=== PATIENT | male | born 1950 | race American Indian/Alaskan Native ===

== ENCOUNTER 2018-07-24 15:31 | Inpatient (IN) | payer MEDICARE, MEDICAID ==
[2018-07-24 15:32] VITALS: BMI 23.1
--- NOTE | 2018-07-24 17:32 | C.PDOC ---
History Of Present Illness 68 year old male, with history of homelessness, is brought to the ED by EMS for evaluation after he was found publicly intoxicated prior to arrival. Patient is complaining of right-sided hip pain, which he states is chronic. Patient presents to the ED covered in feces and denies suicidal/homicidal ideation or recent trauma/injuries at this time. <Shania Pinto - Last Filed: 07/24/18 19:10> History Per: Patient, EMS History/Exam Limitations: intoxication Onset/Duration Of Symptoms: Hrs Current Symptoms Are (Timing): Still Present Additional History Per: Patient <Shania Pitno - Last Filed: 07/24/18 19:10> <Hadley Denney - Last Filed: 07/25/18 06:17> Time Seen by Provider: 07/24/18 15:45 Chief Complaint (Nursing): Hip Pain Past Medical History Reviewed: Historical Data, Nursing Documentation, Vital Signs Vital Signs: Last Vital Signs Temp 98.4 F 07/24/18 15:44 Pulse 95 H 07/24/18 15:44 Resp 20 07/24/18 15:44 BP 121/77 07/24/18 15:44 Pulse Ox 96 07/24/18 15:44 - Medical History PMH: Schizophrenia Denies: Diabetes, Hepatitis, HIV, HTN, Chronic Kidney Disease, Seizures, Sexually Transmitted Disease Surgical History: No Surg Hx - [facility] Procedures (05/14/18) EXCISION OF RIGHT LOWER LEG SKIN, EXTERNAL APPROACH (05/14/18) EXERCISE TREATMENT OF MUSCULOSK WHOLE USING ASSIST EQUIPMENT (05/17/18) HOME MANAGEMENT TREATMENT USING ASSIST EQUIPMENT (05/17/18) INTRODUCE OF OTH ANTI-INFECT INTO PERIPH VEIN, PERC APPROACH (05/17/18) INTRODUCTION OF SERUM/TOX/VACCINE INTO MUSCLE, PERC APPROACH (05/14/18) Family History: States: Unknown Family Hx - Social History Hx Alcohol Use: No Hx Substance Use: No - Immunization History Hx Tetanus Toxoid Vaccination: Yes Hx Influenza Vaccination: Yes Hx Pneumococcal Vaccination: Yes <Shania Pinto - Last Filed: 07/24/18 19:10> Vital Signs: Last Vital Signs Temp 99.5 F 07/25/18 04:30 Pulse 87 07/25/18 04:30 Resp 16 07/25/18 04:30 BP 110/70 07/25/18 04:30 Pulse Ox 97 07/25/18 04:30 - [facility] Procedures (05/14/18) EXCISION OF RIGHT LOWER LEG SKIN, EXTERNAL APPROACH (05/14/18) EXERCISE TREATMENT OF MUSCULOSK WHOLE USING ASSIST EQUIPMENT (05/17/18) HOME MANAGEMENT TREATMENT USING ASSIST EQUIPMENT (05/17/18) INTRODUCE OF OTH ANTI-INFECT INTO PERIPH VEIN, PERC APPROACH (05/17/18) INTRODUCTION OF SERUM/TOX/VACCINE INTO MUSCLE, PERC APPROACH (05/14/18) <Hadley Denney - Last Filed: 07/25/18 06:17> Review Of Systems Musculoskeletal: Positive for: Other (right hip pain (chronic)) Psych: Positive for: Other (EtOH intoxication ). Negative for: Suicidal ideation <Shania Pinto - Last Filed: 07/24/18 19:10> Physical Exam - Physical Exam Appears: Non-toxic, No Acute Distress, Unkempt, Other (covered in feces ) Skin: Normal Color, Warm, Dry Head: Atraumatic, Normacephalic Eye(s): bilateral: Normal Inspection Oral Mucosa: Moist, Other (alcohol on breath ) Neck: Supple Chest: Symmetrical, No Deformity Respiratory: No Accessory Muscle Use Neurological/Psych: Normal Speech, Other (speaking in full sentences ) <Shania Pinto - Last Filed: 07/24/18 19:10> ED Course And Treatment O2 Sat by Pulse Oximetry: 96 (on RA ) Pulse Ox Interpretation: Normal <Shania Pinto Last Filed: 07/24/18 19:10> - Laboratory Results Result Diagrams: 07/25/18 05:38 07/25/18 00:13 Lab Results: Total Bilirubin 1.2 mg/dL (0.2-1.3) 07/25/18 00:13 AST 32 U/L (17-59) 07/25/18 00:13 ALT 28 U/L (21-72) 07/25/18 00:13 Alkaline Phosphatase 78 U/L (38-126) 07/25/18 00:13 Total Protein 6.4 g/dL (6.3-8.3) 07/25/18 00:13 Albumin 3.3 g/dL (3.5-5.0) L 07/25/18 00:13 Globulin 3.1 gm/dL (2.2-3.9) 07/25/18 00:13 Albumin/Globulin Ratio 1.1 (1.0-2.1) 07/25/18 00:13 Urine Color Yellow (YELLOW) 07/24/18 02:46 Urine Clarity Clear (Clear) 07/24/18 02:46 Urine pH 6.0 (5.0-8.0) 07/24/18 02:46 Ur Specific [place] 1.010 (1.003-1.030) 07/24/18 02:46 Urine Protein Negative mg/dL (NEGATIVE) 07/24/18 02:46 Urine Glucose (UA) Normal mg/dL (Normal) 07/24/18 02:46 Urine Ketones Negative mg/dL (NEGATIVE) 07/24/18 02:46 Urine Blood Trace (NEGATIVE) H 07/24/18 02:46 Urine Nitrate Negative (NEGATIVE) 07/24/18 02:46 Urine Bilirubin Negative (NEGATIVE) 07/24/18 02:46 Urine Urobilinogen 4.0 mg/dL (0.2-1.0) 07/24/18 02:46 Ur Leukocyte Esterase Neg Bailey/uL (Negative) 07/24/18 02:46 Urine WBC (Auto) 1 /hpf (0-5) 07/24/18 02:46 Ur Squamous Epith Cells < 1 /hpf (0-5) 07/24/18 02:46 Urine Bacteria Rare (<OCC) 07/24/18 02:46 Pulse Ox Interpretation: Normal - Radiology CXR: Interpreted by Me, Viewed By Me CXR Interpretation: Yes: Infiltrates (? rll ). No: Fracture, Pnemothorax Progress Note: Pt is clinically sober. Denies any cough, shortness of breath. Speaking in complete sentences. Wants to go. Instructed to return if he does not feel well Reevaluation Time: 06:12 Reassessment Condition: Improved <Hadley Denney - Last Filed: 07/25/18 06:17> Medical Decision Making Medical Decision Making: Progress: Patient is being cleaned by staff and will be fed a meal. Hip XR ordered and reviewed. Motrin PO given. <Shania Pinto - Last Filed: 07/24/18 19:10> Disposition - Disposition Disposition Time: 19:09 <Shania Pinto - Last Filed: 07/24/18 19:10> Counseled Patient/Family Regarding: Studies Performed, Diagnosis, Need For Followup, Rx Given <Hadley Denney - Last Filed: 07/25/18 06:17> - Disposition Referrals: [facility] [Outside] [facility] [Outside] Disposition: HOME/ ROUTINE Condition: FAIR Additional Instructions: Please return if you have fever, chill cough, shortness of breath or not feeling well. 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 - Scribe Statement The provider has reviewed the documentation as recorded by the Scribe (Elizabeth Willard) All medical record entries made by the Scribe were at my direction and personally dictated by me. I have reviewed the chart and agree that the record accurately reflects my personal performance of the history, physical exam, medical decision making, and the department course for this patient. I have also personally directed, reviewed, and agree with the discharge instructions and disposition. <Shania Pinto - Last Filed: 07/24/18 19:10> Physician Patient Turnover Patient Signed Over To: Hadley Denney Handoff Comments: Pending sobriety <Shania Pinto - Last Filed: 07/24/18 19:10>
[2018-07-25 00:20] LABS: BASO % 0.1 % (0.0-2.0); EOS % 0.1 % (0.0-4.0); HEMOGLOBIN 10.9 g/dL (12.0-18.0); LYMPH # 0.8 K/uL (1.0-4.3); LYMPH % 3.9 % (20.0-40.0); MEAN CELL VOLUME 83.9 fL (80.0-94.0); MEAN CORPUSCULAR HEMOGLOBIN 27.1 pg (27.0-31.0); MEAN CORPUSCULAR HGB CONC 32.3 g/dL (33.0-37.0); MEAN PLATELET VOLUME 6.9 fL (7.2-11.7); MONO # 1.6 K/uL (0.0-0.8); MONO % 7.7 % (0.0-10.0); NEUT # 18.7 K/uL (1.8-7.0); NEUT % 88.2 % (50.0-75.0); PLATELET COUNT 345 K/uL (130-400); RBC 4.01 Mil/uL (4.40-5.90); RED CELL DISTRIBUTION WIDTH 14.4 % (11.5-14.5); WHITE BLOOD COUNT 21.2 K/uL (4.8-10.8)
[2018-07-25 00:34] LABS: ALB/GLOB RATIO 1.1 (1.0-2.1); ALBUMIN 3.3 g/dL (3.5-5.0); ALT/SGPT 28 U/L (21-72); AST/SGOT 32 U/L (17-59); BLOOD UREA NITROGEN 16 mg/dL (9-20); CALCIUM 8.3 mg/dl (8.6-10.4); GFR NON-AFRICAN AMERICAN > 60
[2018-07-25 01:23] LABS: BANDS 2 % (0-2); LYMPHOCYTE 4 % (20-40); MONOCYTE 8 % (0-10); NEUTROPHIL 86 % (50-75); PLATELET ESTIMATE NORMAL (NORMAL); TOTAL CELLS COUNTED 100
[2018-07-25 02:50] LABS: SQUAMOUS EPITHIAL < 1 /hpf (0-5); URINE BACTERIA RARE (<OCC); URINE BILIRUBIN NEGATIVE (NEGATIVE); URINE BLOOD TRACE (NEGATIVE); URINE CLARITY Clear (Clear); URINE COLOR Yellow (YELLOW); URINE GLUCOSE (UA) NORMAL (Normal); URINE LEUKOCYTE ESTERASE NEG Leu/uL (Negative); URINE PROTEIN NEGATIVE (NEGATIVE)
[2018-07-25] MEDS ORDERED: Sodium Chloride 0.9% 1,000 ML IV ONE ×2 (03:00→04:05)
[2018-07-25 03:05] LABS: BARBITURATES, UR NEGATIVE (NEGATIVE); BENZODIAZEPINES, UR NEGATIVE (NEGATIVE); OPIATES, UR NEGATIVE (NEGATIVE); PHENCYCLIDINE, UR NEGATIVE (NEGATIVE)
[2018-07-25 05:43] LABS: BASO % 0.1 % (0.0-2.0); EOS % 0.1 % (0.0-4.0); HEMOGLOBIN 11.2 g/dL (12.0-18.0); LYMPH # 0.9 K/uL (1.0-4.3); LYMPH % 4.3 % (20.0-40.0); MEAN CELL VOLUME 84.2 fL (80.0-94.0); MEAN CORPUSCULAR HEMOGLOBIN 27.7 pg (27.0-31.0); MEAN CORPUSCULAR HGB CONC 32.9 g/dL (33.0-37.0); MEAN PLATELET VOLUME 6.7 fL (7.2-11.7); MONO # 1.5 K/uL (0.0-0.8); MONO % 7.4 % (0.0-10.0); NEUT % 88.1 % (50.0-75.0); PLATELET COUNT 341 K/uL (130-400); RBC 4.05 Mil/uL (4.40-5.90); RED CELL DISTRIBUTION WIDTH 14.3 % (11.5-14.5); WHITE BLOOD COUNT 20.5 K/uL (4.8-10.8)
[2018-07-25 08:02] LABS: BANDS 10 % (0-2); LYMPHOCYTE 9 % (20-40); MONOCYTE 3 % (0-10); NEUTROPHIL 78 % (50-75); TOTAL CELLS COUNTED 100
[2018-07-25 08:03] LABS: PLATELET ESTIMATE NORMAL (NORMAL)
[2018-07-25 08:04] LABS: HYPOCHROMIC SLIGHT; POLYCHROMIC SLIGHT; TARGET CELLS SLIGHT
[2018-07-25 09:10] LABS: VENOUS BLOOD GAS BASE EXCESS 2.6 mmol/L (0.0-2.0); VENOUS BLOOD GAS PCO2 41 mmHg (40-60); VENOUS BLOOD GAS PO2 41 mm/Hg (30-55); VENOUS BLOOD PH 7.43 (7.32-7.43)
--- NOTE | 2018-07-25 10:58 | RAD ---
Chest x-ray single frontal view HISTORY: Elevated white blood cell count. Comparison: None available. Findings: Small left pleural effusion with adjacent left basilar consolidation. Mild venous congestion. Right infrahilar prominence. Cardiomegaly. Biapical pleural thickening with upper lobe granulomatous changes. Degenerative changes in the spine and shoulders. Impression: Small left pleural effusion with adjacent left basilar consolidation. Mild venous congestion. Right infrahilar prominence. Cardiomegaly. Biapical pleural thickening with upper lobe granulomatous changes.
--- NOTE | 2018-07-25 12:19 | RAD ---
Indication: hip pain Right hip with pelvis Comparison: None available Findings: Mild bilateral glenohumeral joint space narrowing. 12 mm sclerotic focus, right intratrochanteric region. No acute displaced fracture or dislocation identified. Sacroiliac joints appear intact. Moderate constipation. Soft tissues appear unremarkable. No evidence of radiopaque foreign body. Impression: No acute displaced fracture or dislocation evident. If high clinical index of suspicion, suggest cross-sectional imaging for further evaluation. Otherwise, if symptoms persist or if there is continued clinical concern, x-ray follow-up in 7-10 days should be considered. 12 mm sclerotic focus, right intratrochanteric region. Moderate constipation.
[2018-07-25] MEDS: Folic Acid 1 MG, Thiamine 100 MG, Multivitamin (MVI) 10 ML in Dextrose 5% In Water 1,00... IV SCH (14:00)
[2018-07-25] MEDS: guaiFENesin 600 mg ER Tab PO SCH ×2 (14:01→17:48)
--- NOTE | 2018-07-25 21:45 | CP.PCM.HP ---
Present on Admission - Present on Admission Any Indicators Present on Admission: No Past Patient History - Infectious Disease Hx of Infectious Diseases: None - Past Medical History & Family History Past Medical History?: No - Past Social History Smoking Status: Current Some Days Smoker - CARDIAC Hx Cardiac Disorders: No Hx Hypertension: No - PULMONARY Hx Bronchitis: Yes Hx Tuberculosis: No - NEUROLOGICAL HX Cerebrovascular Accident: No Hx Seizures: No - HEENT Hx HEENT Problems: No - RENAL Hx Chronic Kidney Disease: No Hx Dialysis: No - ENDOCRINE/METABOLIC Hx Endocrine Disorders: No - HEMATOLOGICAL/ONCOLOGICAL Hx Cancer: No Hx Human Immunodeficiency Virus (HIV): No - INTEGUMENTARY Hx Dermatological Problems: Yes Other/Comment: right thigh skin ulcer - MUSCULOSKELETAL/RHEUMATOLOGICAL Hx Falls: Yes - GASTROINTESTINAL Hx Gastrointestinal Disorders: No - GENITOURINARY/GYNECOLOGICAL Hx Genitourinary Disorders: No Hx Sexually Transmitted Disorders: No - PSYCHIATRIC Hx Psychophysiologic Disorder: Yes Hx Depression: Yes Hx Schizophrenia: Yes Hx Substance Use: No - SURGICAL HISTORY Hx Surgeries: No - ANESTHESIA Hx Anesthesia: Yes Hx Anesthesia Reactions: No Hx Malignant Hyperthermia: No Has any member of the family had a problem w/ anesthesia?: No Meds Allergies/Adverse Reactions: Allergies Allergy/AdvReac Type Severity Reaction Status Date / Time No Known Allergies Allergy Verified 05/23/18 01:01 Results - Vital Signs Recent Vital Signs: Last Vital Signs Temp 99.3 F 07/25/18 11:20 Pulse 79 07/25/18 14:05 Resp 16 07/25/18 14:05 BP 117/68 07/25/18 14:05 Pulse Ox 98 07/25/18 19:00 - Labs Result Diagrams: 07/25/18 05:38 07/25/18 00:13 Labs: Laboratory Results - last 24 hr 07/24/18 07/24/18 07/25/18 02:46 02:46 00:13 WBC 21.2 H RBC 4.01 L Hgb 10.9 L Hct 33.6 L MCV 83.9 MCH 27.1 MCHC 32.3 L RDW 14.4 Plt Count 345 MPV 6.9 L Neut % (Auto) 88.2 H Lymph % (Auto) 3.9 L [place] % (Auto) 7.7 Eos % (Auto) 0.1 Baso % (Auto) 0.1 Neut # (Auto) 18.7 H Lymph # (Auto) 0.8 L [place] # (Auto) 1.6 H Eos # (Auto) 0.0 Baso # (Auto) 0.0 Neutrophils % (Manual) 86 H Band Neutrophils % 2 Lymphocytes % (Manual) 4 L Monocytes % (Manual) 8 Platelet Estimate Normal Polychromasia Hypochromasia (manual) Target Cells pO2 VBG pH VBG pCO2 VBG HCO3 VBG Total CO2 VBG O2 Sat (Calc) VBG Base Excess VBG Potassium Glucose Lactate Sodium Potassium Chloride Carbon Dioxide Anion Gap BUN Creatinine Est GFR ( Amer) Est GFR (Non-Af Amer) Random Glucose Calcium Phosphorus Magnesium Total Bilirubin AST ALT Alkaline Phosphatase Total Protein Albumin Globulin Albumin/Globulin Ratio Venous Blood Potassium Urine Color Yellow Urine Clarity Clear Urine pH 6.0 Ur Specific [place] 1.010 Urine Protein Negative Urine Glucose (UA) Normal Urine Ketones Negative Urine Blood Trace H Urine Nitrate Negative Urine Bilirubin Negative Urine Urobilinogen 4.0 Ur Leukocyte Esterase Neg Urine WBC (Auto) 1 Ur Squamous Epith Cells < 1 Urine Bacteria Rare Urine Opiates Screen Negative Urine Methadone Screen Negative Ur Barbiturates Screen Negative Ur Phencyclidine Scrn Negative Ur Amphetamines Screen Negative U Benzodiazepines Scrn Negative U Oth Cocaine Metabols Negative U Cannabinoids Screen Negative Alcohol, Quantitative Influenza Typ A,B (EIA) 07/25/18 07/25/18 07/25/18 00:13 05:38 09:05 WBC 20.5 H RBC 4.05 L Hgb 11.2 L Hct 34.1 L MCV 84.2 MCH 27.7 MCHC 32.9 L RDW 14.3 Plt Count 341 MPV 6.7 L Neut % (Auto) 88.1 H Lymph % (Auto) 4.3 L [place] % (Auto) 7.4 Eos % (Auto) 0.1 Baso % (Auto) 0.1 Neut # (Auto) 18.0 H Lymph # (Auto) 0.9 L [place] # (Auto) 1.5 H Eos # (Auto) 0.0 Baso # (Auto) 0.0 Neutrophils % (Manual) 78 H Band Neutrophils % 10 H Lymphocytes % (Manual) 9 L Monocytes % (Manual) 3 Platelet Estimate Normal Polychromasia Slight Hypochromasia (manual) Slight Target Cells Slight pO2 41 VBG pH 7.43 VBG pCO2 41 VBG HCO3 26.4 VBG Total CO2 28.5 H VBG O2 Sat (Calc) 78.7 H VBG Base Excess 2.6 H VBG Potassium 3.0 L Glucose 95 Lactate 1.0 Sodium 130 L 137.0 Potassium 3.3 L Chloride 96 L 105.0 Carbon Dioxide 28 Anion Gap 10 BUN 16 Creatinine 0.9 Est GFR ( Amer) > 60 Est GFR (Non-Af Amer) > 60 Random Glucose 93 Calcium 8.3 L Phosphorus 2.1 L Magnesium 1.8 Total Bilirubin 1.2 AST 32 ALT 28 Alkaline Phosphatase 78 Total Protein 6.4 Albumin 3.3 L Globulin 3.1 Albumin/Globulin Ratio 1.1 Venous Blood Potassium 3.0 L Urine Color Urine Clarity Urine pH Ur Specific [place] Urine Protein Urine Glucose (UA) Urine Ketones Urine Blood Urine Nitrate Urine Bilirubin Urine Urobilinogen Ur Leukocyte Esterase Urine WBC (Auto) Ur Squamous Epith Cells Urine Bacteria Urine Opiates Screen Urine Methadone Screen Ur Barbiturates Screen Ur Phencyclidine Scrn Ur Amphetamines Screen U Benzodiazepines Scrn U Oth Cocaine Metabols U Cannabinoids Screen Alcohol, Quantitative < 10 Influenza Typ A,B (EIA) 07/25/18 09:36 WBC RBC Hgb Hct MCV MCH MCHC RDW Plt Count MPV Neut % (Auto) Lymph % (Auto) [place] % (Auto) Eos % (Auto) Baso % (Auto) Neut # (Auto) Lymph # (Auto) [place] # (Auto) Eos # (Auto) Baso # (Auto) Neutrophils % (Manual) Band Neutrophils % Lymphocytes % (Manual) Monocytes % (Manual) Platelet Estimate Polychromasia Hypochromasia (manual) Target Cells pO2 VBG pH VBG pCO2 VBG HCO3 VBG Total CO2 VBG O2 Sat (Calc) VBG Base Excess VBG Potassium Glucose Lactate Sodium Potassium Chloride Carbon Dioxide Anion Gap BUN Creatinine Est GFR ( Amer) Est GFR (Non-Af Amer) Random Glucose Calcium Phosphorus Magnesium Total Bilirubin AST ALT Alkaline Phosphatase Total Protein Albumin Globulin Albumin/Globulin Ratio Venous Blood Potassium Urine Color Urine Clarity Urine pH Ur Specific [place] Urine Protein Urine Glucose (UA) Urine Ketones Urine Blood Urine Nitrate Urine Bilirubin Urine Urobilinogen Ur Leukocyte Esterase Urine WBC (Auto) Ur Squamous Epith Cells Urine Bacteria Urine Opiates Screen Urine Methadone Screen Ur Barbiturates Screen Ur Phencyclidine Scrn Ur Amphetamines Screen U Benzodiazepines Scrn U Oth Cocaine Metabols U Cannabinoids Screen Alcohol, Quantitative Influenza Typ A,B (EIA) Negative for flu a/b
[2018-07-25] MEDS: Albuterol-Ipratrop 3 mg / 0.5 (3 ml) UD INH SCH (22:38)
[2018-07-26] MEDS: Albuterol-Ipratrop 3 mg / 0.5 (3 ml) UD INH SCH ×3 (01:40→20:04)
--- NOTE | 2018-07-26 06:55 | HP ---
CHIEF COMPLAINT: Weakness and cough x1 week. HISTORY OF PRESENT ILLNESS: This is a 68-year-old male who is alcoholic, he drinks daily in large quantity and has had multiple hospitalizations due to alcohol who is not on any medication, not being followed up by any physician, who is an alcoholic. He drinks large quantity and different kind of alcohol on a daily basis. The patient has been feeling weak, dizzy. He has cough, congestion, sputum production, chills, rigors, body aches, tiredness, anorexia, malaise, and fatigue. The patient denies any polyuria, polydipsia, or polyphagia. He has shaking. He has tremor. He denies any fever. However, he has weakness, difficulty walking. He denies any abdominal pain or diarrhea. He denies any history of joint pain, hip pain. He has tingling in the feet. There is no history of trauma, head injury, fall or loss of consciousness. No seizure-like activity. ALLERGIES: UNKNOWN. CURRENT MEDICATIONS: None. PAST MEDICAL HISTORY: Nothing significant. SOCIAL HISTORY: He smokes. He drinks. He denies any street drugs. FAMILY HISTORY: Noncontributory. PHYSICAL EXAMINATION: GENERAL: An elderly male in no acute distress. He looks weak, disheveled with smell of alcohol. VITAL SIGNS: Blood pressure 116/74, pulse 85, respiratory rate 20, temperature 98.6. SKIN: Dry, poor turgor. No bruises. No purpura. No petechiae. HEENT: Atraumatic and normocephalic. Negative pallor. Negative jaundice. Extraocular movements are intact. NECK: Supple. No JVD. No lymph nodes. No thyromegaly. CHEST WALL: Bilateral symmetrical expansion. No deformity. No masses. LUNGS: Bilateral inspiratory and expiratory rhonchi. Decreased air entry. CVS: PMI in fifth intercostal space. S1, S2 plus S3 positive. ABDOMEN: Soft and nontender. Bowel sounds are positive. RECTAL: No masses. No bleed. EXTREMITIES: No clubbing, cyanosis, or edema. HOSE CEMENTER: Awake, alert, and oriented x3. Cranial nerves II through XII are normal. He is now walking unsteady, but he is able to walk. ASSESSMENT: 1. Tracheobronchitis, rule out pneumonia. 2. Alcoholism with alcohol intoxication. 3. Anemia, could be due to alcohol, could be gastrointestinal nauseous. PLAN: Admit. Detailed orders are written. The patient is seen and examined in detail. Zaheer Raza MD
[2018-07-26 07:22] LABS: TOTAL IRON BINDING CAPACITY 279 ug/dL (250-450)
[2018-07-26 07:31] LABS: IRON 14 ug/dL (49-181)
[2018-07-26 07:41] LABS: % IRON SATURATION 5 (20-55)
[2018-07-26] MEDS: guaiFENesin 600 mg ER Tab PO SCH ×2 (09:45→18:14)
[2018-07-26] MEDS: Azithromycin 500 MG in Sodium Chloride 0.9% 250 ML IVPB SCH (10:29)
[2018-07-26] MEDS: Folic Acid 1 MG, Thiamine 100 MG, Multivitamin (MVI) 10 ML in Dextrose 5% In Water 1,00... IV SCH (11:00)
[2018-07-26] MEDS: Enoxaparin 40 mg Syringe SC SCH (11:00)
[2018-07-26] MEDS ORDERED: Potassium Chloride 20 mEq ER Tab PO ONE (16:00)
--- NOTE | 2018-07-26 21:13 | CP.PCM.PN ---
Subjective - Date & Time of Evaluation Date of Evaluation: 07/26/18 Time of Evaluation: 09:40 - Subjective Subjective: dictated Objective - Vital Signs/Intake and Output Vital Signs (last 24 hours): Temp Pulse Resp BP Pulse Ox 98.2 F 99 H 20 127/83 97 07/26/18 16:00 07/26/18 16:00 07/26/18 16:00 07/26/18 16:00 07/26/18 16:00 Intake and Output: 07/26/18 07/27/18 18:59 06:59 Intake Total 1450 Output Total 300 Balance 1150 - Medications Medications: Current Medications Acetaminophen (Tylenol 325mg Tab) 650 mg PO Q6 PRN PRN Reason: Pain, moderate (4-7) Last Admin: 07/26/18 20:44 Dose: 650 mg Albuterol/Ipratropium (Duoneb 3 Mg/0.5 Mg (3 Ml) Ud) 3 ml INH RQ6 ANNAMARIE Last Admin: 07/26/18 20:04 Dose: Not Given Enoxaparin Sodium (Lovenox) 40 mg SC DAILY ANNAMARIE Last Admin: 07/26/18 11:00 Dose: 40 mg Ferrous Sulfate (Feosol Liq) 300 mg PO DAILY ANNAMARIE Guaifenesin (Mucinex La) 600 mg PO BID ANNAMARIE Last Admin: 07/26/18 18:14 Dose: 600 mg Folic Acid 1 mg/ Thiamine HCl 100 mg/ Multivitamins/Vitamin C 10 ml/ Dextrose 1,011.2 mls @ 100 mls/hr IV DAILY ANNAMARIE Last Admin: 07/26/18 11:00 Dose: 100 mls/hr Ceftriaxone Sodium 1 gm/ (Sodium Chloride) 100 mls @ 100 mls/hr IVPB DAILY ANNAMARIE; Protocol Last Admin: 07/26/18 09:44 Dose: 100 mls/hr Azithromycin 500 mg/ Sodium (Chloride) 250 mls @ 250 mls/hr IVPB DAILY ANNAMARIE; Protocol Last Admin: 07/26/18 10:29 Dose: 250 mls/hr - Labs Labs: 07/25/18 05:38 07/25/18 00:13
--- NOTE | 2018-07-27 00:46 | PN ---
DATE: 07/26/2018 SUBJECTIVE: The patient is confused, and he is forgetful. He is coughing. He is wheezing. He is afebrile. WBC is still elevated to 12.5, the patient has bands 10%. PHYSICAL EXAMINATION: VITAL SIGNS: Blood pressure 127/83, pulse 99, respiratory rate 20, and temperature 98.2. LUNGS: Bilateral scattered rales and rhonchi. Decreased air entry. CARDIOVASCULAR SYSTEM: S1 and S2, regular. ABDOMEN: Soft. ASSESSMENT: 1. Clinically, there is pneumonia. 2. Alcoholism. 3. Right arm injury. PLAN: Continue antibiotics and monitor WBC count and Pulmonary consult. Zaheer Raza MD
[2018-07-27] MEDS: Albuterol-Ipratrop 3 mg / 0.5 (3 ml) UD INH SCH ×3 (01:22→20:40)
[2018-07-27 07:29] LABS: BASO % 0.3 % (0.0-2.0); EOS # 0.1 K/uL (0.0-0.7); EOS % 0.6 % (0.0-4.0); HEMOGLOBIN 12.3 g/dL (12.0-18.0); LYMPH % 5.7 % (20.0-40.0); MEAN CELL VOLUME 83.2 fL (80.0-94.0); MEAN CORPUSCULAR HEMOGLOBIN 28.4 pg (27.0-31.0); MEAN CORPUSCULAR HGB CONC 34.2 g/dL (33.0-37.0); MEAN PLATELET VOLUME 6.7 fL (7.2-11.7); MONO # 1.3 K/uL (0.0-0.8); MONO % 7.6 % (0.0-10.0); NEUT # 15.2 K/uL (1.8-7.0); NEUT % 85.8 % (50.0-75.0); PLATELET COUNT 440 K/uL (130-400); RBC 4.34 Mil/uL (4.40-5.90); RED CELL DISTRIBUTION WIDTH 14.9 % (11.5-14.5); WHITE BLOOD COUNT 17.6 K/uL (4.8-10.8)
[2018-07-27 08:00] LABS: BLOOD UREA NITROGEN 12 mg/dL (9-20); CALCIUM 8.5 mg/dl (8.6-10.4); GFR NON-AFRICAN AMERICAN > 60
[2018-07-27 08:56] LABS: BANDS 7 % (0-2); EOSINOPHIL 3 % (0-4); LYMPHOCYTE 2 % (20-40); MONOCYTE 6 % (0-10); MYELOCYTE 1 % (0-0); NEUTROPHIL 79 % (50-75); PLATELET ESTIMATE NORMAL (NORMAL); REACTIVE LYMPHOCYTES 2 % (0-0); TOTAL CELLS COUNTED 100
[2018-07-27] MEDS: guaiFENesin 600 mg ER Tab PO SCH ×2 (10:35→17:06)
[2018-07-27] MEDS: Ferrous Sulfate 300 mg/5 mL Liq UD PO SCH (10:35)
[2018-07-27] MEDS: Enoxaparin 40 mg Syringe SC SCH (10:35)
[2018-07-27] MEDS: Azithromycin 500 MG in Sodium Chloride 0.9% 250 ML IVPB SCH (10:35)
[2018-07-27] MEDS: Folic Acid 1 MG, Thiamine 100 MG, Multivitamin (MVI) 10 ML in Dextrose 5% In Water 1,00... IV SCH (10:36)
--- NOTE | 2018-07-27 12:27 | CP.PCM.PN ---
Subjective - Date & Time of Evaluation Date of Evaluation: 07/27/18 Time of Evaluation: 07:40 - Subjective Subjective: dictated Objective - Vital Signs/Intake and Output Vital Signs (last 24 hours): Temp Pulse Resp BP Pulse Ox 98 F 82 20 136/77 96 07/27/18 08:44 07/27/18 08:44 07/27/18 08:44 07/27/18 08:44 07/27/18 08:44 Intake and Output: 07/27/18 07/27/18 06:59 18:59 Intake Total 1480 Output Total 2750 Balance -1270 - Medications Medications: Current Medications Acetaminophen (Tylenol 325mg Tab) 650 mg PO Q6 PRN PRN Reason: Pain, moderate (4-7) Last Admin: 07/26/18 20:44 Dose: 650 mg Albuterol/Ipratropium (Duoneb 3 Mg/0.5 Mg (3 Ml) Ud) 3 ml INH RQ6 ANNAMARIE Last Admin: 07/27/18 08:39 Dose: Not Given Enoxaparin Sodium (Lovenox) 40 mg SC DAILY [facility] Last Admin: 07/27/18 10:35 Dose: 40 mg Ferrous Sulfate (Feosol Liq) 300 mg PO DAILY ANNAMARIE Last Admin: 07/27/18 10:35 Dose: 300 mg Guaifenesin (Mucinex La) 600 mg PO BID ANNAMARIE Last Admin: 07/27/18 10:35 Dose: 600 mg Folic Acid 1 mg/ Thiamine HCl 100 mg/ Multivitamins/Vitamin C 10 ml/ Dextrose 1,011.2 mls @ 100 mls/hr IV DAILY ANNAMARIE Last Admin: 07/27/18 10:36 Dose: 100 mls/hr Ceftriaxone Sodium 1 gm/ (Sodium Chloride) 100 mls @ 100 mls/hr IVPB DAILY ANNAMARIE; Protocol Last Admin: 07/27/18 10:34 Dose: 100 mls/hr Azithromycin 500 mg/ Sodium (Chloride) 250 mls @ 250 mls/hr IVPB DAILY ANNAMARIE; Protocol Last Admin: 07/27/18 10:35 Dose: 250 mls/hr - Labs Labs: 07/27/18 07:21 07/27/18 07:21
--- NOTE | 2018-07-27 15:43 | CP.PCM.CON ---
History of Present Illness - History of Present Illness History of Present Illness: 68-year-old male who presented to emergency room with right leg pain. Patient has history of schizophrenia and was recently admitted to [facility] with right thigh abscess and had I and D. and left AMA before completing antibiotics. Patient complaining off cough and shortnes and wheezing. Patient found to have elevated white count with negative chest x-ray. Review of Systems - Review of Systems All systems: reviewed and no additional remarkable complaints except (shortness of breath and cough) Past Patient History - Infectious Disease Hx of Infectious Diseases: None - Past Medical History & Family History Past Medical History?: No - Past Social History Smoking Status: Current Some Days Smoker - CARDIAC Hx Cardiac Disorders: No Hx Hypertension: No - PULMONARY Hx Bronchitis: Yes Hx Tuberculosis: No - NEUROLOGICAL HX Cerebrovascular Accident: No - HEENT Hx HEENT Problems: No - RENAL Hx Chronic Kidney Disease: No Hx Dialysis: No - ENDOCRINE/METABOLIC Hx Endocrine Disorders: No - HEMATOLOGICAL/ONCOLOGICAL Hx Cancer: No Hx Human Immunodeficiency Virus (HIV): No - INTEGUMENTARY Hx Dermatological Problems: Yes Other/Comment: right thigh skin ulcer - MUSCULOSKELETAL/RHEUMATOLOGICAL Hx Arthritis: Yes - GASTROINTESTINAL Hx Gastrointestinal Disorders: No - GENITOURINARY/GYNECOLOGICAL Hx Genitourinary Disorders: No Hx Sexually Transmitted Disorders: No - PSYCHIATRIC Hx Psychophysiologic Disorder: Yes Hx Depression: Yes Hx Schizophrenia: Yes Hx Substance Use: No - SURGICAL HISTORY Hx Surgeries: No - ANESTHESIA Hx Anesthesia: Yes Hx Anesthesia Reactions: No Hx Malignant Hyperthermia: No Has any member of the family had a problem w/ anesthesia?: No Meds Allergies/Adverse Reactions: Allergies Allergy/AdvReac Type Severity Reaction Status Date / Time No Known Allergies Allergy Verified 05/23/18 01:01 - Medications Medications: Current Medications Acetaminophen (Tylenol 325mg Tab) 650 mg PO Q6 PRN PRN Reason: Pain, moderate (4-7) Last Admin: 07/26/18 20:44 Dose: 650 mg Albuterol/Ipratropium (Duoneb 3 Mg/0.5 Mg (3 Ml) Ud) 3 ml INH RQ6 [facility] Last Admin: 07/27/18 08:39 Dose: Not Given Enoxaparin Sodium (Lovenox) 40 mg SC DAILY [facility] Last Admin: 07/27/18 10:35 Dose: 40 mg Ferrous Sulfate (Feosol Liq) 300 mg PO DAILY [facility] Last Admin: 07/27/18 10:35 Dose: 300 mg Guaifenesin (Mucinex La) 600 mg PO BID [facility] Last Admin: 07/27/18 10:35 Dose: 600 mg Folic Acid 1 mg/ Thiamine HCl 100 mg/ Multivitamins/Vitamin C 10 ml/ Dextrose 1,011.2 mls @ 100 mls/hr IV DAILY [facility] Last Admin: 07/27/18 10:36 Dose: 100 mls/hr Ceftriaxone Sodium 1 gm/ (Sodium Chloride) 100 mls @ 100 mls/hr IVPB DAILY [facility]; Protocol Last Admin: 07/27/18 10:34 Dose: 100 mls/hr Azithromycin 500 mg/ Sodium (Chloride) 250 mls @ 250 mls/hr IVPB DAILY [facility]; Protocol Last Admin: 07/27/18 10:35 Dose: 250 mls/hr Physical Exam - Head Exam Head Exam: ATRAUMATIC, NORMOCEPHALIC - ENT Exam ENT Exam: Mucous Membranes Moist - Neck Exam Neck exam: Positive for: Normal Inspection - Respiratory Exam Respiratory Exam: Clear to Auscultation Bilateral - Cardiovascular Exam Cardiovascular Exam: REGULAR RHYTHM Results - Vital Signs Recent Vital Signs: Last Vital Signs Temp 98 F 07/27/18 08:44 Pulse 82 07/27/18 08:44 Resp 20 07/27/18 08:44 BP 136/77 07/27/18 08:44 Pulse Ox 96 07/27/18 08:44 - Labs Result Diagrams: 07/27/18 07:21 07/27/18 07:21 Labs: Laboratory Results - last 24 hr 07/27/18 07/27/18 07:21 07:21 WBC 17.6 H RBC 4.34 L Hgb 12.3 Hct 36.1 MCV 83.2 MCH 28.4 MCHC 34.2 RDW 14.9 H Plt Count 440 H MPV 6.7 L Neut % (Auto) 85.8 H Lymph % (Auto) 5.7 L [place] % (Auto) 7.6 Eos % (Auto) 0.6 Baso % (Auto) 0.3 Neut # (Auto) 15.2 H Lymph # (Auto) 1.0 [place] # (Auto) 1.3 H Eos # (Auto) 0.1 Baso # (Auto) 0.0 Neutrophils % (Manual) 79 H Band Neutrophils % 7 H Lymphocytes % (Manual) 2 L Reactive Lymphs % 2 H Monocytes % (Manual) 6 Eosinophils % (Manual) 3 Myelocytes % 1 H Platelet Estimate Normal Sodium 136 Potassium 3.9 Chloride 100 Carbon Dioxide 30 Anion Gap 10 BUN 12 Creatinine 0.8 Est GFR ( Amer) > 60 Est GFR (Non-Af Amer) > 60 Random Glucose 92 Calcium 8.5 L Assessment & Plan (1) Pneumonia Status: Acute (2) COPD (chronic obstructive pulmonary disease) Assessment and Plan: Patient with long history of smoking most likely has COPD Chest x-ray consistent with consolidation Continue IV antibiotics and nebulizer treatment Follow-up culture and sensitivity Patient advised to stop smoking Status: Acute
--- NOTE | 2018-07-27 18:12 | PN ---
DATE: 07/27/2018 SUBJECTIVE: The patient is feeling better. He has less cough, less shortness of breath. No nausea or vomiting. Decreased WBC. PHYSICAL EXAMINATION: VITAL SIGNS: Blood pressure 136/77, pulse 52, respiratory rate 20, and temperature 98. LUNGS: Bilateral scattered rales and rhonchi. CARDIOVASCULAR: S1 and S2, regular. ABDOMEN: Soft. ASSESSMENT: 1. Pneumonia. 2. Alcoholism. PLAN: Continue current medications and monitor the patient. Zaheer Raza MD
[2018-07-28] MEDS: Albuterol-Ipratrop 3 mg / 0.5 (3 ml) UD INH SCH ×4 (01:37→19:51)
[2018-07-28] MEDS: Enoxaparin 40 mg Syringe SC SCH (10:13)
[2018-07-28] MEDS: guaiFENesin 600 mg ER Tab PO SCH ×2 (10:13→17:43)
[2018-07-28] MEDS: Ferrous Sulfate 300 mg/5 mL Liq UD PO SCH (10:13)
[2018-07-28] MEDS: Folic Acid 1 MG, Thiamine 100 MG, Multivitamin (MVI) 10 ML in Dextrose 5% In Water 1,00... IV SCH (10:15)
[2018-07-28] MEDS: Azithromycin 500 MG in Sodium Chloride 0.9% 250 ML IVPB SCH (10:28)
--- NOTE | 2018-07-28 12:15 | CP.PCM.PN ---
Subjective - Date & Time of Evaluation Date of Evaluation: 07/28/18 Time of Evaluation: 10:00 - Subjective Subjective: Patient seen and examined Still complaining of pain in the right leg No cough or shortness of breath noted Afebrile Denies any chest pain Objective - Vital Signs/Intake and Output Vital Signs (last 24 hours): Temp Pulse Resp BP Pulse Ox 98.3 F 93 H 20 131/75 98 07/28/18 08:38 07/28/18 08:38 07/28/18 08:38 07/28/18 08:38 07/28/18 08:38 Intake and Output: 07/28/18 07/28/18 06:59 18:59 Intake Total 120 Balance 120 - Medications Medications: Current Medications Acetaminophen (Tylenol 325mg Tab) 650 mg PO Q6 PRN PRN Reason: Pain, moderate (4-7) Last Admin: 07/28/18 00:48 Dose: 650 mg Albuterol/Ipratropium (Duoneb 3 Mg/0.5 Mg (3 Ml) Ud) 3 ml INH RQ6 [facility] Last Admin: 07/28/18 07:49 Dose: 3 ml Enoxaparin Sodium (Lovenox) 40 mg SC DAILY [facility] Last Admin: 07/28/18 10:13 Dose: 40 mg Ferrous Sulfate (Feosol Liq) 300 mg PO DAILY [facility] Last Admin: 07/28/18 10:13 Dose: 300 mg Guaifenesin (Mucinex La) 600 mg PO BID [facility] Last Admin: 07/28/18 10:13 Dose: 600 mg Folic Acid 1 mg/ Thiamine HCl 100 mg/ Multivitamins/Vitamin C 10 ml/ Dextrose 1,011.2 mls @ 100 mls/hr IV DAILY [facility] Last Admin: 07/28/18 10:15 Dose: 100 mls/hr Ceftriaxone Sodium 1 gm/ (Sodium Chloride) 100 mls @ 100 mls/hr IVPB DAILY [facility]; Protocol Last Admin: 07/28/18 10:16 Dose: 100 mls/hr Azithromycin 500 mg/ Sodium (Chloride) 250 mls @ 250 mls/hr IVPB DAILY [facility]; Protocol Last Admin: 07/28/18 10:28 Dose: 250 mls/hr - Labs Labs: 07/27/18 07:21 07/27/18 07:21 - Head Exam Head Exam: ATRAUMATIC, NORMOCEPHALIC - ENT Exam ENT Exam: Mucous Membranes Moist - Neck Exam Neck Exam: Normal Inspection - Respiratory Exam Respiratory Exam: Clear to Ausculation Bilateral Assessment and Plan (1) Pneumonia Assessment & Plan: Continue IV antibiotics for now Continue nebulizer treatment as needed Follow-up chest x-ray Status: Acute (2) COPD (chronic obstructive pulmonary disease) Status: Acute
[2018-07-29] MEDS: Albuterol-Ipratrop 3 mg / 0.5 (3 ml) UD INH SCH ×4 (02:06→20:50)
[2018-07-29 07:42] LABS: BASO % 0.3 % (0.0-2.0); EOS # 0.1 K/uL (0.0-0.7); EOS % 0.7 % (0.0-4.0); HEMOGLOBIN 12.7 g/dL (12.0-18.0); LYMPH % 7.2 % (20.0-40.0); MEAN CELL VOLUME 83.2 fL (80.0-94.0); MEAN CORPUSCULAR HEMOGLOBIN 27.7 pg (27.0-31.0); MEAN CORPUSCULAR HGB CONC 33.2 g/dL (33.0-37.0); MEAN PLATELET VOLUME 6.6 fL (7.2-11.7); MONO # 0.8 K/uL (0.0-0.8); MONO % 6.1 % (0.0-10.0); NEUT # 11.7 K/uL (1.8-7.0); NEUT % 85.7 % (50.0-75.0); PLATELET COUNT 484 K/uL (130-400); RED CELL DISTRIBUTION WIDTH 14.8 % (11.5-14.5); WHITE BLOOD COUNT 13.6 K/uL (4.8-10.8)
[2018-07-29 08:05] LABS: BLOOD UREA NITROGEN 17 mg/dL (9-20); CALCIUM 8.6 mg/dl (8.6-10.4); GFR NON-AFRICAN AMERICAN > 60
[2018-07-29 08:36] LABS: BANDS 1 % (0-2); EOSINOPHIL 1 % (0-4); LYMPHOCYTE 8 % (20-40); MONOCYTE 6 % (0-10); NEUTROPHIL 82 % (50-75); REACTIVE LYMPHOCYTES 2 % (0-0); TOTAL CELLS COUNTED 100
[2018-07-29 08:37] LABS: ANISOCYTOSIS SLIGHT; MICROCYTOSIS SLIGHT; PLATELET ESTIMATE SLIGHTLY INCREASED (NORMAL); POIKILOCYTOSIS SLIGHT
[2018-07-29 08:38] LABS: HYPOCHROMIC SLIGHT; POLYCHROMIC SLIGHT; TOXIC GRANULATION PRESENT
[2018-07-29 08:39] LABS: TARGET CELLS SLIGHT
[2018-07-29] MEDS: guaiFENesin 600 mg ER Tab PO SCH ×2 (10:15→17:20)
[2018-07-29] MEDS: Ferrous Sulfate 300 mg/5 mL Liq UD PO SCH (10:16)
[2018-07-29] MEDS: Enoxaparin 40 mg Syringe SC SCH (10:16)
[2018-07-29] MEDS: Azithromycin 500 MG in Sodium Chloride 0.9% 250 ML IVPB SCH (10:29)
--- NOTE | 2018-07-29 22:23 | CP.PCM.PN ---
Subjective - Date & Time of Evaluation Date of Evaluation: 07/28/18 Time of Evaluation: 14:55 - Subjective Subjective: dictated Objective - Vital Signs/Intake and Output Vital Signs (last 24 hours): Temp Pulse Resp BP Pulse Ox 98.4 F 92 H 20 135/82 98 07/29/18 08:14 07/29/18 08:14 07/29/18 08:14 07/29/18 08:14 07/29/18 08:14 Intake and Output: 07/29/18 07/30/18 18:59 06:59 Intake Total 500 Balance 500 - Medications Medications: Current Medications Acetaminophen (Tylenol 325mg Tab) 650 mg PO Q6 PRN PRN Reason: Pain, moderate (4-7) Last Admin: 07/28/18 20:37 Dose: 650 mg Albuterol/Ipratropium (Duoneb 3 Mg/0.5 Mg (3 Ml) Ud) 3 ml INH RQ6 [facility] Last Admin: 07/29/18 20:50 Dose: Not Given Enoxaparin Sodium (Lovenox) 40 mg SC DAILY [facility] Last Admin: 07/29/18 10:16 Dose: 40 mg Ferrous Sulfate (Feosol Liq) 300 mg PO DAILY [facility] Last Admin: 07/29/18 10:16 Dose: 300 mg Guaifenesin (Mucinex La) 600 mg PO BID [facility] Last Admin: 07/29/18 17:20 Dose: 600 mg Ceftriaxone Sodium 1 gm/ (Sodium Chloride) 100 mls @ 100 mls/hr IVPB DAILY [facility]; Protocol Last Admin: 07/29/18 10:18 Dose: 100 mls/hr Azithromycin 500 mg/ Sodium (Chloride) 250 mls @ 250 mls/hr IVPB DAILY [facility]; P rotocol Last Admin: 07/29/18 10:29 Dose: 250 mls/hr - Labs Labs: 07/29/18 07:32 07/29/18 07:32
--- NOTE | 2018-07-29 22:24 | CP.PCM.PN ---
Subjective - Date & Time of Evaluation Date of Evaluation: 07/29/18 Time of Evaluation: 15:59 - Subjective Subjective: dictated Objective - Vital Signs/Intake and Output Vital Signs (last 24 hours): Temp Pulse Resp BP Pulse Ox 98.4 F 92 H 20 135/82 98 07/29/18 08:14 07/29/18 08:14 07/29/18 08:14 07/29/18 08:14 07/29/18 08:14 Intake and Output: 07/29/18 07/30/18 18:59 06:59 Intake Total 500 Balance 500 - Medications Medications: Current Medications Acetaminophen (Tylenol 325mg Tab) 650 mg PO Q6 PRN PRN Reason: Pain, moderate (4-7) Last Admin: 07/28/18 20:37 Dose: 650 mg Albuterol/Ipratropium (Duoneb 3 Mg/0.5 Mg (3 Ml) Ud) 3 ml INH RQ6 [facility] Last Admin: 07/29/18 20:50 Dose: Not Given Enoxaparin Sodium (Lovenox) 40 mg SC DAILY [facility] Last Admin: 07/29/18 10:16 Dose: 40 mg Ferrous Sulfate (Feosol Liq) 300 mg PO DAILY [facility] Last Admin: 07/29/18 10:16 Dose: 300 mg Guaifenesin (Mucinex La) 600 mg PO BID [facility] Last Admin: 07/29/18 17:20 Dose: 600 mg Ceftriaxone Sodium 1 gm/ (Sodium Chloride) 100 mls @ 100 mls/hr IVPB DAILY [facility]; Protocol Last Admin: 07/29/18 10:18 Dose: 100 mls/hr Azithromycin 500 mg/ Sodium (Chloride) 250 mls @ 250 mls/hr IVPB DAILY [facility]; P rotocol Last Admin: 07/29/18 10:29 Dose: 250 mls/hr - Labs Labs: 07/29/18 07:32 07/29/18 07:32
--- NOTE | 2018-07-30 00:43 | PN ---
DATE: 07/29/2018 SUBJECTIVE: The patient is feeling better. He is afebrile. No shortness of breath. Decreased WBC count. No nausea or vomiting. PHYSICAL EXAMINATION: VITAL SIGNS: Blood pressure 135/82, pulse 92, respiratory rate 20, temperature 98.5. LUNGS: Positive scattered rales and rhonchi. CARDIOVASCULAR SYSTEM: S1, S2. Regular. ABDOMEN: Soft. ASSESSMENT: 1. Pneumonia. 2. Homelessness. 3. Alcoholism. PLAN: Continue current medications. Monitor the patient. Zaheer Raza MD
[2018-07-30] MEDS: Albuterol-Ipratrop 3 mg / 0.5 (3 ml) UD INH SCH ×3 (01:08→13:15)
[2018-07-30] MEDS: guaiFENesin 600 mg ER Tab PO SCH ×3 (09:39→17:50)
[2018-07-30] MEDS: Enoxaparin 40 mg Syringe SC SCH ×2 (09:39→09:48)
[2018-07-30] MEDS: Ferrous Sulfate 300 mg/5 mL Liq UD PO SCH ×2 (09:39→09:48)
[2018-07-30] MEDS: Azithromycin 500 MG in Sodium Chloride 0.9% 250 ML IVPB SCH (10:36)
--- NOTE | 2018-07-30 15:29 | CP.PCM.PN ---
Subjective - Date & Time of Evaluation Date of Evaluation: 07/30/18 Time of Evaluation: 07:00 - Subjective Subjective: Patient seen and examined Unable to get information No shortness of breath No cough Afebrile Objective - Vital Signs/Intake and Output Vital Signs (last 24 hours): Temp Pulse Resp BP Pulse Ox 98.6 F 83 20 125/70 96 07/30/18 07:45 07/30/18 07:45 07/30/18 07:45 07/30/18 07:45 07/30/18 07:45 Intake and Output: 07/30/18 07/30/18 06:59 18:59 Intake Total 350 240 Output Total 250 400 Balance 100 -160 - Medications Medications: Current Medications Acetaminophen (Tylenol 325mg Tab) 650 mg PO Q6 PRN PRN Reason: Pain, moderate (4-7) Last Admin: 07/28/18 20:37 Dose: 650 mg Enoxaparin Sodium (Lovenox) 40 mg SC DAILY [facility] Last Admin: 07/30/18 09:48 Dose: Not Given Ferrous Sulfate (Feosol Liq) 300 mg PO DAILY [facility] Last Admin: 07/30/18 09:48 Dose: Not Given Guaifenesin (Mucinex La) 600 mg PO BID [facility] Last Admin: 07/30/18 09:49 Dose: Not Given Ceftriaxone Sodium 1 gm/ (Sodium Chloride) 100 mls @ 100 mls/hr IVPB DAILY [facility]; Protocol Last Admin: 07/30/18 09:40 Dose: 100 mls/hr Azithromycin 500 mg/ Sodium (Chloride) 250 mls @ 250 mls/hr IVPB DAILY [facility]; Protocol Last Admin: 07/30/18 10:36 Dose: 250 mls/hr - Labs Labs: 07/29/18 07:32 07/29/18 07:32 - Head Exam Head Exam: ATRAUMATIC, NORMOCEPHALIC - ENT Exam ENT Exam: Mucous Membranes Moist - Neck Exam Neck Exam: Normal Inspection - Respiratory Exam Respiratory Exam: Clear to Ausculation Bilateral - Cardiovascular Exam Cardiovascular Exam: REGULAR RHYTHM - GI/Abdominal Exam GI & Abdominal Exam: Soft Assessment and Plan (1) Pneumonia Assessment & Plan: Follow-up chest x-ray Continue antibiotics Status: Acute (2) COPD (chronic obstructive pulmonary disease) Status: Acute
--- NOTE | 2018-07-30 22:41 | CP.PCM.PN ---
Subjective - Date & Time of Evaluation Date of Evaluation: 07/30/18 Time of Evaluation: 07:00 - Subjective Subjective: dictated Objective - Vital Signs/Intake and Output Vital Signs (last 24 hours): Temp Pulse Resp BP Pulse Ox 98.1 F 82 20 118/76 97 07/30/18 17:14 07/30/18 17:14 07/30/18 17:14 07/30/18 17:14 07/30/18 17:14 Intake and Output: 07/30/18 07/31/18 18:59 06:59 Intake Total 240 Output Total 400 Balance -160 - Medications Medications: Current Medications Acetaminophen (Tylenol 325mg Tab) 650 mg PO Q6 PRN PRN Reason: Pain, moderate (4-7) Last Admin: 07/28/18 20:37 Dose: 650 mg Enoxaparin Sodium (Lovenox) 40 mg SC DAILY [facility] Last Admin: 07/30/18 09:48 Dose: Not Given Ferrous Sulfate (Feosol Liq) 300 mg PO DAILY [facility] Last Admin: 07/30/18 09:48 Dose: Not Given Guaifenesin (Mucinex La) 600 mg PO BID [facility] Last Admin: 07/30/18 17:50 Dose: 600 mg Ceftriaxone Sodium 1 gm/ (Sodium Chloride) 100 mls @ 100 mls/hr IVPB DAILY [facility]; Protocol Last Admin: 07/30/18 09:40 Dose: 100 mls/hr Azithromycin 500 mg/ Sodium (Chloride) 250 mls @ 250 mls/hr IVPB DAILY [facility]; Protocol Last Admin: 07/30/18 10:36 Dose: 250 mls/hr - Labs Labs: 07/29/18 07:32 07/29/18 07:32
[2018-07-30 23:45] VITALS: BP 115/77; PULSE 71; RESP 16; TEMP 97.3; O2SAT 99
--- NOTE | 2018-07-31 04:21 | PN ---
DATE: 07/30/2018 SUBJECTIVE: The patient is feeling better. Decreased cough. Decreased shortness of breath. No nausea or vomiting. PHYSICAL EXAMINATION VITAL SIGNS: Blood pressure 118/76, pulse 82, respiratory rate 20, temperature 98.1. LUNGS: Decreased air entry. Positive rales. CARDIOVASCULAR SYSTEM: S1 and S2, regular. ABDOMEN: Soft. ASSESSMENT: 1. Pneumonia. 2. Alcoholism. 3. Homeless. PLAN: Subacute rehab, monitor the patient. Zaheer Raza MD
--- NOTE | 2018-07-31 22:28 | CP.PCM.DIS ---
Provider - Provider Date of Admission: 07/26/18 21:29 Attending physician: Zaheer Raza MD Consults: 07/26/18 21:30 Pulmonology Consult Routine Comment: Consulting Provider: Donovan Millard Consulting Physician: Donovan Millard Reason for Consult: pna Time Spent in preparation of Discharge (in minutes): 30 Hospital Course - Lab Results Lab Results: Micro Results 07/25/18 09:23 Blood-Venous Blood Culture - Final NO GROWTH AFTER 5 DAYS 07/25/18 09:23 Blood-Venous Gram Stain - Final TEST NOT PERFORMED 07/25/18 09:15 Blood-Venous Blood Culture - Final NO GROWTH AFTER 5 DAYS 07/25/18 09:15 Blood-Venous Gram Stain - Final TEST NOT PERFORMED Most Recent Lab Values WBC 13.6 K/uL (4.8-10.8) H 07/29/18 07:32 RBC 4.60 Mil/uL (4.40-5.90) 07/29/18 07:32 Hgb 12.7 g/dL (12.0-18.0) 07/29/18 07:32 Hct 38.3 % (35.0-51.0) 07/29/18 07:32 MCV 83.2 fL (80.0-94.0) 07/29/18 07:32 MCH 27.7 pg (27.0-31.0) 07/29/18 07:32 MCHC 33.2 g/dL (33.0-37.0) 07/29/18 07:32 RDW 14.8 % (11.5-14.5) H 07/29/18 07:32 Plt Count 484 K/uL (130-400) H 07/29/18 07:32 MPV 6.6 fL (7.2-11.7) L 07/29/18 07:32 Neut % (Auto) 85.7 % (50.0-75.0) H 07/29/18 07:32 Lymph % (Auto) 7.2 % (20.0-40.0) L 07/29/18 07:32 [place] % (Auto) 6.1 % (0.0-10.0) 07/29/18 07:32 Eos % (Auto) 0.7 % (0.0-4.0) 07/29/18 07:32 Baso % (Auto) 0.3 % (0.0-2.0) 07/29/18 07:32 Neut # (Auto) 11.7 K/uL (1.8-7.0) H 07/29/18 07:32 Lymph # (Auto) 1.0 K/uL (1.0-4.3) 07/29/18 07:32 [place] # (Auto) 0.8 K/uL (0.0-0.8) 07/29/18 07:32 Eos # (Auto) 0.1 K/uL (0.0-0.7) 07/29/18 07:32 Baso # (Auto) 0.0 K/uL (0.0-0.2) 07/29/18 07:32 Neutrophils % (Manual) 82 % (50-75) H 07/29/18 07:32 Band Neutrophils % 1 % (0-2) 07/29/18 07:32 Lymphocytes % (Manual) 8 % (20-40) L 07/29/18 07:32 Reactive Lymphs % 2 % (0-0) H 07/29/18 07:32 Monocytes % (Manual) 6 % (0-10) 07/29/18 07:32 Eosinophils % (Manual) 1 % (0-4) 07/29/18 07:32 Myelocytes % 1 % (0-0) H 07/27/18 07:21 Toxic Granulation Present 07/29/18 07:32 Platelet Estimate Slightly increased (NORMAL) H 07/29/18 07:32 Polychromasia Slight 07/29/18 07:32 Hypochromasia (manual) Slight 07/29/18 07:32 Poikilocytosis (manual Slight 07/29/18 07:32 Anisocytosis (manual) Slight 07/29/18 07:32 Microcytosis (manual) Slight 07/29/18 07:32 Macrocytosis (manual) Slight 07/29/18 07:32 Target Cells Slight 07/29/18 07:32 pO2 41 mm/Hg (30-55) 07/25/18 09:05 VBG pH 7.43 (7.32-7.43) 07/25/18 09:05 VBG pCO2 41 mmHg (40-60) 07/25/18 09:05 VBG HCO3 26.4 mmol/L 07/25/18 09:05 VBG Total CO2 28.5 mmol/L (22-28) H 07/25/18 09:05 VBG O2 Sat (Calc) 78.7 % (40-65) H 07/25/18 09:05 VBG Base Excess 2.6 mmol/L (0.0-2.0) H 07/25/18 09:05 VBG Potassium 3.0 mmol/L (3.6-5.2) L 07/25/18 09:05 Sodium 137.0 mmol/l (132-148) 07/25/18 09:05 Chloride 105.0 mmol/L (98-107) 07/25/18 09:05 Glucose 95 mg/dl (75-110) 07/25/18 09:05 Lactate 1.0 mmol/L (0.7-2.1) 07/25/18 09:05 Sodium 134 mmol/L (132-148) 07/29/18 07:32 Potassium 4.2 mmol/L (3.6-5.2) 07/29/18 07:32 Chloride 100 mmol/L (98-107) 07/29/18 07:32 Carbon Dioxide 29 mmol/L (22-30) 07/29/18 07:32 Anion Gap 10 (10-20) 07/29/18 07:32 BUN 17 mg/dL (9-20) 07/29/18 07:32 Creatinine 0.8 mg/dL (0.8-1.5) 07/29/18 07:32 Est GFR ( Amer) > 60 07/29/18 07:32 Est GFR (Non-Af Amer) > 60 07/29/18 07:32 Random Glucose 100 mg/dL (75-110) 07/29/18 07:32 Calcium 8.6 mg/dl (8.6-10.4) 07/29/18 07:32 Phosphorus 2.1 mg/dL (2.5-4.5) L 07/25/18 00:13 Magnesium 1.8 mg/dL (1.6-2.3) 07/25/18 00:13 Iron 14 ug/dL (49-181) L 07/26/18 06:53 TIBC 279 ug/dL (250-450) 07/26/18 06:53 % Saturation 5 (20-55) L 07/26/18 06:53 Total Bilirubin 1.2 mg/dL (0.2-1.3) 07/25/18 00:13 AST 32 U/L (17-59) 07/25/18 00:13 ALT 28 U/L (21-72) 07/25/18 00:13 Alkaline Phosphatase 78 U/L (38-126) 07/25/18 00:13 Total Protein 6.4 g/dL (6.3-8.3) 07/25/18 00:13 Albumin 3.3 g/dL (3.5-5.0) L 07/25/18 00:13 Globulin 3.1 gm/dL (2.2-3.9) 07/25/18 00:13 Albumin/Globulin Ratio 1.1 (1.0-2.1) 07/25/18 00:13 Vitamin B12 300 pg/mL (239-931) 07/26/18 06:53 Venous Blood Potassium 3.0 mmol/L (3.6-5.2) L 07/25/18 09:05 Urine Color Yellow (YELLOW) 07/24/18 02:46 Urine Clarity Clear (Clear) 07/24/18 02:46 Urine pH 6.0 (5.0-8.0) 07/24/18 02:46 Ur Specific [place] 1.010 (1.003-1.030) 07/24/18 02:46 Urine Protein Negative mg/dL (NEGATIVE) 07/24/18 02:46 Urine Glucose (UA) Normal mg/dL (Normal) 07/24/18 02:46 Urine Ketones Negative mg/dL (NEGATIVE) 07/24/18 02:46 Urine Blood Trace (NEGATIVE) H 07/24/18 02:46 Urine Nitrate Negative (NEGATIVE) 07/24/18 02:46 Urine Bilirubin Negative (NEGATIVE) 07/24/18 02:46 Urine Urobilinogen 4.0 mg/dL (0.2-1.0) 07/24/18 02:46 Ur Leukocyte Esterase Neg Bailey/uL (Negative) 07/24/18 02:46 Urine WBC (Auto) 1 /hpf (0-5) 07/24/18 02:46 Ur Squamous Epith Cells < 1 /hpf (0-5) 07/24/18 02:46 Urine Bacteria Rare (<OCC) 07/24/18 02:46 Urine Opiates Screen Negative (NEGATIVE) 07/24/18 02:46 Urine Methadone Screen Negative (NEGATIVE) 07/24/18 02:46 Ur Barbiturates Screen Negative (NEGATIVE) 07/24/18 02:46 Ur Phencyclidine Scrn Negative (NEGATIVE) 07/24/18 02:46 Ur Amphetamines Screen Negative (NEGATIVE) 07/24/18 02:46 U Benzodiazepines Scrn Negative (NEGATIVE) 07/24/18 02:46 U Oth Cocaine Metabols Negative (NEGATIVE) 07/24/18 02:46 U Cannabinoids Screen Negative (NEGATIVE) 07/24/18 02:46 Alcohol, Quantitative < 10 mg/dl (0-10) 07/25/18 00:13 Influenza Typ A,B (EIA) Negative for flu a/b (NEGATIVE) 07/25/18 09:36 Discharge Exam - Head Exam Head Exam: ATRAUMATIC, NORMOCEPHALIC Discharge Plan - Discharge Medications Prescriptions: Amoxicillin/Clavulanate [Augmentin 875 MG-125 MG] 1 tab PO Q12 #14 tab Folic Acid 1 mg PO DAILY #30 tab Multivitamin [Multiple Vitamins] 1 each PO DAILY #30 tablet Thiamine [Vitamin B1 Tab] 100 mg PO DAILY #30 tab - Follow Up Plan Condition: STABLE Disposition: HOME/ ROUTINE Instructions: Depression, Acute Bronchitis, Hip Pain (DC) Additional Instructions: Please admit patient under Dr. Baltazar - service - Please call Dr. baltazar upon patient arrival to [facility] facility Please continue medication as per med. rec. PLEASE REPEAT CXR AFTER 10 DAYS Referrals: [facility] [Provider Group] [facility] [Outside] [facility] [Outside]
== END 2018-07-31 00:11 | DRG 194 ==
LOC: C.ER 15:31 → C.9E 07-25 09:12 → C.3T 07-25 14:14 → OBSVTOIN 07-26 21:29 → C.3T 07-26 22:44
PROVIDERS: ADMIT Internal Medicine; ATTEND Internal Medicine
DX: J18.9 Pneumonia, unspecified organism (principal); J44.0 Chronic obstructive pulmonary disease with (acute) lower respiratory infection; F10.229 Alcohol dependence with intoxication, unspecified; F17.200 Nicotine dependence, unspecified, uncomplicated; F20.9 Schizophrenia, unspecified; F32.9 Major depressive disorder, single episode, unspecified; S70.01XA Contusion of right hip, initial encounter; D64.9 Anemia, unspecified; Z59.0 Homelessness

== ENCOUNTER 2018-08-25 18:15 | Emergency (ER) | payer MEDICAID, MEDICARE ==
[2018-08-25 18:16] VITALS: BMI 23.1
[2018-08-25 18:32] VITALS: BP 152/85; PULSE 113; RESP 18; TEMP 98.5; O2SAT 96
--- NOTE | 2018-08-25 18:32 | C.PDOC ---
History Of Present Illness 68 y/o male is brought in by ambulance due to foul smell on the train and was asked to get off. Patient has history of schizophrenia and alcoholism. He denies any physical complaints at this time. Time Seen by Provider: 08/25/18 18:27 Chief Complaint (Nursing): Substance Abuse History Per: EMS History/Exam Limitations: no limitations Onset/Duration Of Symptoms: Hrs Current Symptoms Are (Timing): Still Present Past Medical History Reviewed: Historical Data, Nursing Documentation, Vital Signs - Medical History PMH: Arthritis, Bronchitis, Depression, Schizophrenia Denies: Diabetes, Hepatitis, HIV, HTN, Chronic Kidney Disease, Seizures, Sexually Transmitted Disease - [facility] Procedures (05/14/18) EXCISION OF RIGHT LOWER LEG SKIN, EXTERNAL APPROACH (05/14/18) EXERCISE TREATMENT OF MUSCULOSK WHOLE USING ASSIST EQUIPMENT (05/17/18) HOME MANAGEMENT TREATMENT USING ASSIST EQUIPMENT (05/17/18) INTRODUCE OF OTH ANTI-INFECT INTO PERIPH VEIN, PERC APPROACH (05/17/18) INTRODUCTION OF SERUM/TOX/VACCINE INTO MUSCLE, PERC APPROACH (05/14/18) Family History: States: No Known Family Hx - Social History Hx Alcohol Use: Yes Hx Substance Use: No - Immunization History Hx Tetanus Toxoid Vaccination: Yes Hx Influenza Vaccination: Yes Hx Pneumococcal Vaccination: Yes Review Of Systems Except As Marked, All Systems Reviewed And Found Negative. Constitutional: Negative for: Fever, Chills Psych: Positive for: Other (Alcoholic) Physical Exam - Physical Exam Appears: Non-toxic, No Acute Distress, Other (tall thin black male, very smelly foul body odor, cooperative) Skin: Warm, Dry Head: Atraumatic, Normacephalic Eye(s): bilateral: Normal Inspection Oral Mucosa: Moist, Other (alcohol on breath) Cardiovascular: Rhythm Regular, No Murmur Respiratory: Normal Breath Sounds, No Rales, No Rhonchi, No Wheezing Extremity: Bilateral: Atraumatic Neurological/Psych: Oriented x3, Normal Speech Gait: Steady ED Course And Treatment O2 Sat by Pulse Oximetry: 96 (RA) Pulse Ox Interpretation: Normal Medical Decision Making Medical Decision Making: discheveled and foul smelling, but coherent and stable gait no si/hi wants d/c to street Disposition Doctor Will See Patient In The: Office Counseled Patient/Family Regarding: Studies Performed, Diagnosis - Disposition Referrals: Alcoholics Anonymous [Outside] [facility] [Outside] [employer] [facility] [Outside] [facility] [Outside] [facility] [Outside] [facility] [Outside] Disposition: HOME/ ROUTINE Disposition Time: 18:31 Condition: GOOD Instructions: Alcohol Use - When Is Drinking a Problem?, Alcohol Abuse and Alcoholism (DC) Forms: [employer] (Gambian) - Clinical Impression Clinical Impression: Abnormal body odor, Alcohol abuse - Scribe Statement The provider has reviewed the documentation as recorded by the [place] Provider Attestation: All medical record entries made by the Galdinoibdae were at my direction and personally dictated by me. I have reviewed the chart and agree that the record accurately reflects my personal performance of the history, physical exam, medical decision making, and the department course for this patient. I have also personally directed, reviewed, and agree with the discharge instructions and disposition.
== END 2018-08-25 18:50 | disposition home or self-care (01) ==
LOC: C.ER 18:15
DX: F10.10 Alcohol abuse, uncomplicated (principal); Y90.9 Presence of alcohol in blood, level not specified; R46.0 Very low level of personal hygiene

== ENCOUNTER 2018-10-14 16:33 | Emergency (ER) | payer MEDICAID, MEDICARE ==
[2018-10-14 16:33] VITALS: BMI 23.1
[2018-10-14 16:42] VITALS: BP 135/83; PULSE 91; RESP 19; TEMP 98.4; O2SAT 97
--- NOTE | 2018-10-14 17:20 | RAD ---
Date of service: 10/14/2018 PROCEDURE: Bilateral Knee Radiographs. HISTORY: pain COMPARISON: None. TECHNIQUE: 4 views obtained. FINDINGS: BONES: Bone alignment and mineralization are normal. There is no acute displaced fracture or bone destruction. JOINTS: There is mild tricompartmental degenerative osteoarthrosis with reduced joint spaces, marginal osteophytes and tibial spiking, worse in the medial compartment. SOFT TISSUES: Right Knee: Normal. Left Knee: Normal. JOINT EFFUSION: There are small suprapatellar joint effusions OTHER FINDINGS: None. IMPRESSION: No acute displaced fracture or dislocation. Mild tricompartmental degenerative osteoarthrosis, worse in the medial compartments. Small suprapatellar joint effusions.
--- NOTE | 2018-10-14 17:25 | C.PDOC ---
Time Seen by Provider: 10/14/18 16:43 Chief Complaint (Nursing): Lower Extremity Problem/Injury Past Medical History Vital Signs: Last Vital Signs Temp 98.4 F 10/14/18 16:35 Pulse 91 H 10/14/18 16:35 Resp 19 10/14/18 16:35 BP 135/83 10/14/18 16:35 Pulse Ox 97 10/14/18 16:35 - Medical History PMH: Arthritis, Bronchitis, Depression, Schizophrenia Denies: Diabetes, Hepatitis, HIV, HTN, Chronic Kidney Disease, Seizures, Sexually Transmitted Disease - [facility] Procedures (05/14/18) EXCISION OF RIGHT LOWER LEG SKIN, EXTERNAL APPROACH (05/14/18) EXERCISE TREATMENT OF MUSCULOSK WHOLE USING ASSIST EQUIPMENT (05/17/18) HOME MANAGEMENT TREATMENT USING ASSIST EQUIPMENT (05/17/18) INTRODUCE OF OTH ANTI-INFECT INTO PERIPH VEIN, PERC APPROACH (05/17/18) INTRODUCTION OF SERUM/TOX/VACCINE INTO MUSCLE, PERC APPROACH (05/14/18) Family History: States: Unknown Family Hx - Social History Hx Alcohol Use: Yes Hx Substance Use: No - Immunization History Hx Tetanus Toxoid Vaccination: Yes Hx Influenza Vaccination: Yes Hx Pneumococcal Vaccination: Yes ED Course And Treatment O2 Sat by Pulse Oximetry: 97 Disposition - Disposition Referrals: [facility] [Outside] Disposition: HOME/ ROUTINE Disposition Time: 17:23 Condition: STABLE Prescriptions: Acetaminophen [Tylenol 325mg tab] 325 mg PO QID #24 tab Instructions: Knee Pain (DC) Forms: [facility] (Maltese) - POA Present On Arrival: None - Clinical Impression Clinical Impression: Knee pain
== END 2018-10-14 17:55 | disposition home or self-care (01) ==
LOC: C.ER 16:33
DX: M25.562 Pain in left knee (principal); M25.561 Pain in right knee